=== PATIENT | female | born 1965 | race Two or more races ===

== ENCOUNTER → 2024-02-06 | Outpatient (CLI) | payer OTHER, SELFPAY ==
[2024-02-06 09:14] LABS: Basophils # (Auto) 0.1 Thou/mm3 (0.0-0.2); Basophils % (Auto) 1 % (0-2.5); Eosinophils # (Auto) 0.1 Thou/mm3 (0.0-0.5); Eosinophils % (Auto) 1 % (0-10); Hematocrit 39.7 % (36.0-46.0); Hemoglobin 12.7 g/dL (12.0-16.0); Immature Granulocytes % (Auto) 0 % (0-0); Immature Granulocytes Auto 0.02 Thou/mm3 (0.00-0.00); Lymphocytes # (Auto) 2.6 Thou/mm3 (1.0-4.8); Lymphocytes % (Auto) 40 % (10-50); Mean Corpuscular Volume 88 fL (80-100); Monocytes # (Auto) 0.4 Thou/mm3 (0.0-0.8); Monocytes % (Auto) 7 % (0-12); Neutrophils # (Auto) 3.2 Thou/mm3 (1.8-7.7); Neutrophils % (Auto) 50 % (37-80); Nucleated Red Blood Cell % 0 /100 WBC (0); Platelet Count 288 Thou/mm3 (140-440); RDW Standard Deviation 44.3 fL (36.4-46.3); Red Blood Count 4.53 Miln/mm3 (4.00-5.20); White Blood Count 6.4 Thou/mm3 (3.6-11.0)
[2024-02-06 09:20] LABS: Glucose Estimated Average 137 mg/dL (80-131); Hemoglobin A1C 6.4 % Hgb (4.8-6.0)
[2024-02-06 09:29] LABS: Alanine Aminotransferase 21 U/L (10-49); Albumin, Serum 4.5 gm/dL (3.4-4.8); Alkaline Phosphatase 56 U/L (46-116); Anion Gap 6 (7-16); Aspartate Amino Transferase 14 U/L (0-34); BUN/Creatinine Ratio 20 Ratio (12-20); Bilirubin,Direct 0.2 mg/dL (0.0-0.3); Bilirubin,Total 0.6 mg/dL (0.3-1.2); Blood Urea Nitrogen 14 mg/dL (9-23); Calcium 9.3 mg/dL (8.3-10.6); Calcium (Corrected) 9.3 mg/dL (8.5-10.1); Carbon Dioxide 27.5 mMol/L (20.0-31.0); Cardiac Risk Estimate 2.5 RATIO (3.7-5.6); Chloride 106 mMol/L (98-107); Cholesterol 195 mg/dL (132-200); Creatinine (Component) 0.7 mg/dL (0.6-1.3); Globulin 2.3 gm/dL (2.3-3.5); Glucose 140 mg/dL (74-106); HDL Cholesterol 78 mg/dL (40-60); LDL Cholesterol,Calculated 93 mg/dL (0-130); Osmolality,Calculated 280 (275-295); Potassium 4.2 mMol/L (3.4-5.1); Sodium 139 mMol/L (136-145); Thyroid Stimulating Hormone 1.68 uIU/mL (0.55-4.78); Total Protein 6.8 gm/dL (5.7-8.2); Triglycerides 120 mg/dL (30-150); eGFR > 60 See Note
[2024-02-06 09:31] LABS: Vitamin B12 1240 pg/mL (211-911); Vitamin D 25 Hydroxy Total 36.6 ng/mL (7.3-40.2)
== END | disposition home or self-care (01) ==
LOC: COPL 08:35
PROVIDERS: PCP Family Medicine; Referring Provider Student in an Organized Health Care Education/Training Program; Visit Provider Psychiatry & Neurology Neurology
DX: B35.9 Dermatophytosis, unspecified (principal); R41.3 Other amnesia; E11.49 Type 2 diabetes mellitus with other diabetic neurological complication; E78.5 Hyperlipidemia, unspecified
CPT/HCPCS: 36415; 80053; 80061; 82248; 82306; 82607; 83036; 84443; 85025

== ENCOUNTER 2024-09-07 21:23 | Emergency (ER) | payer OTHER, SELFPAY ==
[2024-09-07 21:25] VITALS: BMI 34.2
[2024-09-07 22:19] VITALS: BP 133/89; PULSE 74; RESP 16; TEMP 36.8; O2SAT 97
--- NOTE | 2024-09-07 23:39 | PD.EDRME ---
Rapid Medical Screening Exam RME Arrival date/time: 09/07/24 21:23 Chief Complaint: Eye Problems Time Seen by Provider: 09/07/24 22:44 Vital signs: Vital Signs Temperature 98.3 F 09/07/24 22:19 Pulse Rate 74 09/07/24 22:19 Respiratory Rate 16 09/07/24 22:19 Blood Pressure 133/89 H 09/07/24 22:19 Pulse Oximetry (%) 97 09/07/24 22:19 Oxygen Delivery Method Room Air 09/07/24 22:19 Vital signs reviewed by provider: Yes RME Narrative: 58-year-old female with a past medical history of diabetes and hyperlipidemia, presents to the ED with a complaint of sudden onset of a black ring in her vision of the left eye since this morning as well as a sudden onset of flashing lights in the upper, lower, and lateral field vision that began about 4 PM. Earlier today she had a PET scan of her brain due to memory issues. She denies any loss of vision other than seeing the black ring with a clear center. She denies any recent illness with fever, chills, upper respiratory complaints. She denies any previous history of flashers but has had some light floaters. She had a headache earlier today but attributes that to not having anything to eat prior to her PET scan. She is concerned about the possibility of a retinal detachment. I have greeted and performed a focused initial assessment of this patient. A comprehensive ED assessment and evaluation of the patient, analysis of all test results, and completion of the medical decision making process will be conducted by additional ED providers.
[2024-09-08 00:38] LABS: Basophils # (Auto) 0.0 Thou/mm3 (0.0-0.2); Basophils % (Auto) 1 % (0-2.5); Eosinophils # (Auto) 0.1 Thou/mm3 (0.0-0.5); Eosinophils % (Auto) 1 % (0-10); Hematocrit 40.2 % (36.0-46.0); Hemoglobin 13.1 g/dL (12.0-16.0); Immature Granulocytes Auto 0.03 Thou/mm3 (0.00-0.00); Lymphocytes # (Auto) 3.6 Thou/mm3 (1.0-4.8); Lymphocytes % (Auto) 45 % (10-50); Mean Corpuscular HGB Conc 32.6 g/dl (31.0-37.0); Mean Corpuscular Hemoglobin 28.5 pg (25.0-35.0); Mean Corpuscular Volume 87 fL (80-100); Monocytes # (Auto) 0.6 Thou/mm3 (0.0-0.8); Monocytes % (Auto) 7 % (0-12); Neutrophils # (Auto) 3.8 Thou/mm3 (1.8-7.7); Neutrophils % (Auto) 46 % (37-80); Nucleated Red Blood Cell # 0.00 Thou/mm3 (0.00-0.00); Nucleated Red Blood Cell % 0 /100 WBC (0); Platelet Count 296 Thou/mm3 (140-440); RDW Standard Deviation 43.3 fL (36.4-46.3); Red Blood Count 4.60 Miln/mm3 (4.00-5.20); White Blood Count 8.1 Thou/mm3 (3.6-11.0)
[2024-09-08] MEDS: FLUORESCEIN SOD 1 MG STRP BOTH EYES (00:40)
[2024-09-08] MEDS: PROPARACAINE OP SOL 0.5% 15 ML BTL BOTH EYES (00:40)
[2024-09-08 00:53] LABS: Sed Rate (ESR) 38 mm/hr (0-30)
[2024-09-08 00:59] LABS: Anion Gap 8 (7-16); BUN/Creatinine Ratio 25 Ratio (12-20); Blood Urea Nitrogen 20 mg/dL (9-23); C-Reactive Protein < 0.5 mg/dL (0.0-0.9); Calcium 9.6 mg/dL (8.3-10.6); Carbon Dioxide 28.2 mMol/L (20.0-31.0); Chloride 102 mMol/L (98-107); Creatinine (Component) 0.8 mg/dL (0.6-1.3); Estimated Creatinine Clearance 69.7 mL/min (>60); Glucose 134 mg/dL (74-106); Osmolality,Calculated 280 (275-295); Potassium 4.3 mMol/L (3.4-5.1); Sodium 138 mMol/L (136-145); eGFR > 60 See Note
[2024-09-08 01:09] VITALS: BP 120/80; PULSE 70; RESP 17; O2SAT 96
[2024-09-08 01:10] VITALS: BP 120/80; PULSE 71; RESP 18; TEMP 36.5; O2SAT 97
--- NOTE | 2024-09-08 01:18 | XR_ITS ---
Examination: CT brain head without contrast. 2-D sagittal coronal reconstructions Date and time of exam:September 08, 2024, 0158 hours INDICATIONS: Headaches for a follow via, dark spot in the left eye beginning today CTDI: vol (mGy):48.5 DLP: (mGycm):958 Technique: Multiple CT axial sections of the brain have been obtained, 5 mm slice thickness. Contrast has not been administered. 2-D sagittal, coronal reconstructions have been obtained Low dose protocols were performed. One or more of the following dose reduction techniques were used; automated exposure control, adjustment of the mA and/or KV according to patient size, use of iterative reconstruction technique. Findings: No significant ventricular enlargement. Intra-axial or extra-axial hemorrhage density is not seen. No mass effect or midline shift Basal cisterns are not remarkable. Fourth ventricle is midline. Cranial vault intact. Impression: Negative for acute hemorrhage, mass effect or midline shift
--- NOTE | 2024-09-08 01:26 | EDNOTE_ITS ---
ED Eye Problem RME/HPI General Chief complaint: Eye Problems Stated complaint: DARK SPOTS IN LEFT EYE Time Seen by Provider: 09/07/24 22:44 Arrival date/time: 09/07/24 21:23 Limitations: no limitations RME / HPI RME / HPI Narrative: Dr. Fox's Main ED Evaluation: 58yo female with a history of DM, HLD presents to the ED for a chief complaint of eye problems. Patient states she started seeing flashing lights to her left eye last night around 1900, reporting it resolved after a few minutes. She states she woke up and started seeing a black ring out of her left eye this morning, then saw the flashing lights again this afternoon. She denies any dizziness, weakness, or any other associated symptoms. She does wear glasses. She denies any previous eye surgeries. NKA. Related Data Home Medications ?Medication ?Instructions ?Recorded ?Confirmed metformin 500 mg tablet 500 mg PO BID 09/21/1709/21 rosuvastatin 5 mg tablet (Crestor) mg PO QDAY 09/21/17 sitagliptin phosphate 25 mg tablet mg PO QDAY 09/21/17 (Januvia) Previous Rx's ?Medication ?Instructions ?Recorded alprazolam 0.25 mg tablet (Xanax) 0.25 mg PO TID PRN a nxiety #7 tabs 09/21/17 Allergies Allergy/AdvReac Type Severity Reaction Status Date / Time No Known Allergies Allergy Verified 09/07/24 21:24 Review of Systems Review of Systems Systems Reviewed: All systems reviewed, normal except as documented Past Medical History Past Medical History CARDIAC: Positive Hypercholesterolemia; Negative Congestive Heart Failure RESPIRATORY: Negative Chronic Obstructive Pulmonary Disease (COPD) GENITOURINARY: Negative Renal Disease ENDOCRINE: Positive Diabetes Mellitus Type 2; Negative Diabetes Mellitus Type 1 PSYCHO/SOCIAL: Positive Depression Social History SMOKING STATUS: Never smoker ED Exam General Limitations: Present no limitations General appearance: Present alert and in no apparent distress Head Head exam: Present atraumatic; Absent other (temporal artery tenderness) Eye Eye exam: Present normal appearance, PERRL, EOMI and other (left cornea is clear, no photophobia, no uptake, no Bebo sign, no corneal abrasion, no foreign body; lids are normal without any lacerations, no proptosis) ENT ENT exam: Present normal exam, normal oropharynx, mucous membranes moist and other (no vesicles to the nose or face) Neck Neck exam: Present normal inspection, full ROM and trachea midline Chest Chest inspection: Present normal inspection and symmetric chest wall rise Respiratory Respiratory exam: Present normal lung sounds bilaterally Cardiovascular Cardiovascular exam: Present regular rate, normal rhythm and normal heart sounds Abdominal Exam Abdominal exam: Present soft and normal bowel sounds Extremities Exam Extremities exam: Present normal inspection and full ROM Back Exam Back exam: Present normal inspection and full ROM Neurological Exam Neurological exam: Present alert, oriented X3 and CN II-XII intact Psychiatric Psychiatric exam: Present normal affect and normal mood Skin Skin exam: Present warm, dry, intact and normal color Course Quality Measures none Orders Category Date Time Status [place] to Bedside X1 Care 09/08/24 00:[address] head/brain wo con Stat Exams 09/08/24 01:18 Completed BMP [Basic Metabolic Panel] Stat Lab 09/08/24 00:32 Completed CBC Stat Lab 09/08/24 00:32 Completed CRP [C-Reactive Protein] Stat Lab 09/08/24 00:32 Completed ESR [Sed Rate (ESR)] Stat Lab 09/08/24 00:32 Completed Fluorescein Sodium [Bio-Nell] Med 09/08/24 00:25 Discontinued 1 mg BOTH EYES X1 ONE Proparacaine Op Herminia 0.5% [Alcaine Op Herminia 0.5%] Med 09/08/24 00:25 Discontinued See Dose Instructions BOTH EYES X1 ONE Vital Signs Vital signs: Vital Signs Temperature 98.3 F 09/07/24 22:19 Pulse Rate 74 09/07/24 22:19 Respiratory Rate 16 09/07/24 22:19 Blood Pressure 133/89 H 09/07/24 22:19 Pulse Oximetry (%) 97 09/07/24 22:19 Oxygen Delivery Method Room Air 09/07/24 22:19 Eye MDM Narrative MDM Narrative:: Scribe Attestation: 09/08/24 Charmaine Hernández am scribing for and in the presence of Dr. Fox. 58-year-old female with history of diabetes presenting to the emergency department with intermittent flashing lights left eye currently not present With normal visual acuity. Bedside ultrasound shows vitreous hemorrhage cannot rule out retinal detachment. The patient does not have a history of trauma in the last 48 hours and at this time the need to arrange for outpatient follow. Patient's symptoms have resolved here in the emergency department. CT shows no stroke. Tocopen shows left eye pressure is 15. 0328: Discussed case with [facility]'s transfer center. Discussed patients ED course, exam findings, labs, and radiology results. Awaiting callback. 0352: [facility] called back, stating the patient can follow-up at the [facility] later today or tomorrow as an outpatient. Patient data External records reviewed:: [facility] previous records (Per chart review, patient has no relevant previous ED visits.) Clinical information provided by:: none Social determinants that could affect healthcare access:: none Patient has the following chronic illnesses:: DM, HLD How is presenting disease/condition affected by chronic disease/condition?: uneffected by Evaluation data The following diagnostics were reviewed and interpreted by me:: lab results and radiology exam(s) Lab and/or radiology exams considered but not ordered:: none Interpretation Summary: CBC normal, BMP normal, CRP normal. Telerad Preliminary Report Draft Patient: SYED REARDON. Record#: [id number] Birthdate: 1965 Age/Sex: 58 / F Location: [facility] Attending Dr: Ordering Physician: Date of Service: Procedure(s): Accession Number(s): cc: ~ CT scan of the head without intravenous contrast (axial sections with sagittal and coronal reformats) September 08, 2024 0158 hours Clinical History: 58 yo with left eye blinking lights No prior study is available for comparison. Findings: There is no evidence of intracranial hemorrhage, mass effect or midline shift. There is mild volume loss. The calvarium is unremarkable. The mastoid air cells and the visualized paranasal sinuses are clear. Impression: No evidence of intracranial hemorrhage, mass effect or midline shift. Report Electronically Signed By: Rao Iglesias 09/08/2024 2:28:31 AM Medications / Prescriptions Medications or Prescriptions considered but not ordered:: none Medication administrations:: Medication Administration History Discontinued Medications Fluorescein Sodium (Fluorescein Sod 1 Mg Strp) 1 mg BOTH EYES X1 ONE Stop: 09/08/24 00:26 Last Admin: 09/08/24 00:40 Dose: 1 mg Documented By: JENNIFER Comments: given to provider Proparacaine HCl (Proparacaine Op Herminia 0.5% 15 Ml Btl) 0 drop BOTH EYES X1 ONE Stop: 09/08/24 00:26 Last Admin: 09/08/24 00:40 Dose: 1 drop Documented By: JENNIFER Comments: given to provider see above Consultations Consultation(s) initiated? (list below): Yes Diagnosis Eye Problem Differential Diagnosis: other (vitreous hemorrhage, retinal detachment, stroke) Most likely diagnosis given after review of the tests above:: see clinical impression below Admission Indicated Admission indicated?: not indicated Admission Request Was there a request for admission?: No Disposition Plan Disposition Plan: Discharge Discharge Attestation Discharge Attestation: The patient and all family members were given an opportunity to ask questions and understood the discharge instructions. Discharge instructions specifically effects, indications for sooner follow up or return to the emergency department, and the expected course of current diagnosis. Patient condition: Stable Discharge Plan Plan Patient Disposition: HOME (Self Care) Prescriptions/Referrals Prescriptions/Med Rec: No Action metformin 500 mg Tablet 500 mg PO BID sitagliptin phosphate [Januvia] 25 mg Tablet PO QDAY rosuvastatin [Crestor] 5 mg Tablet PO QDAY alprazolam [Xanax] 0.25 mg tablet 0.25 mg PO TID PRN (Reason: anxiety) Qty: 7 0RF Problem List Clinical Impression: Vitreous hemorrhage Patient/Caregiver Discharge Instructions Additional Instructions: Call the [facility] at [phone] to make an appointment for later today or tomorrow. Address is [address] [place] [address], [id number], located on the 3rd floor. Print Language: Bhutanese Stand Alone Forms: [facility] Award Info., Patient Portal Info Letter
--- NOTE | 2024-09-08 02:29 | PRELIM_ITS ---
CT scan of the head without intravenous contrast (axial sections with sagittal and coronal reformats) September 08, 2024 0158 hours Clinical History: 58 yo with left eye blinking lights No prior study is available for comparison. Findings: There is no evidence of intracranial hemorrhage, mass effect or midline shift. There is mild volume loss. The calvarium is unremarkable. The mastoid air cells and the visualized paranasal sinuses are clear. Impression: No evidence of intracranial hemorrhage, mass effect or midline shift. Report Electronically Signed By: Rao Iglesias 09/08/2024 2:28:31 AM [EST]
--- NOTE | 2024-09-08 03:29 | PC.NURSE ---
[facility] contacted for an [facility] patient [facility]mology consult. [facility] speaking to Andres at the moment for emtala questions.
[2024-09-08 04:46] VITALS: BP 117/90; PULSE 70; RESP 17; TEMP 36.5; O2SAT 95
== END 2024-09-08 04:47 | disposition home or self-care (01) ==
LOC: SERX 09-08 04:04
PROVIDERS: Emergency Provider Emergency Medicine; PCP Family Medicine
DX: H43.12 Vitreous hemorrhage, left eye (principal); R51.9 Headache, unspecified
CPT/HCPCS: 36415; 70450; 80048; 85025; 85652; 86140; 99283

== ENCOUNTER → 2024-11-09 | Outpatient (CLI) | payer OTHER, SELFPAY ==
--- NOTE | 2024-11-09 14:15 | XR_ITS ---
Examination: Screening digital mammography, bilateral Computer aided detection 3-D breast Tomosynthesis, bilateral Date and time of exam: November 09, 2024, 1354 hours, compared to mammograms dating to April 28, 2017 Indication: Screening Technique: Nonmagnified MLO, CC views of the breasts to been obtained, reconstructed from 3-D Tomosynthesis images. R2 computer aided detection program utilized for evaluation of suspicious masses and/or abnormal calcifications. 3-D Tomosynthesis images obtained. Findings: The breasts are heterogeneously dense, which may obscure small masses The breast architecture remains nodular on the left Breast biopsy marker upper outer left breast Grouped microcalcifications upper from the breast biopsy marker upper outer left breast anterior depth Focal asymmetry retroareolar region left breast again noted Impression: BI-RADS Category 0: Incomplete: Need additional imaging evaluation Recommend follow-up magnification spot compression films of grouped microcalcifications upper outer left breast as well as bilateral breast sonography to complete the workup
== END | disposition home or self-care (01) ==
LOC: CDIM 13:43
PROVIDERS: Referring Provider Family Medicine; Visit Provider Family Medicine
DX: Z12.31 Encounter for screening mammogram for malignant neoplasm of breast (principal); R92.0 Mammographic microcalcification found on diagnostic imaging of breast
CPT/HCPCS: 77063; 77067

== ENCOUNTER → 2024-12-03 | Outpatient (CLI) | payer OTHER, SELFPAY ==
[2024-12-03 14:43] LABS: OBS Performed By LAB; OBS QC OK? Yes
[2024-12-03 15:49] LABS: Occult Blood, Stool Negative (Negative); Occult Blood, Stool #2 Negative (Negative); Occult Blood, Stool #3 Negative (Negative)
[2024-12-03 15:50] LABS: OBS Developer Expiration Date 2-28-27; OBS Developer Lot # 4-24-551749
== END | disposition home or self-care (01) ==
LOC: SLDO 14:38
PROVIDERS: PCP Family Medicine; Referring Provider Family Medicine; Visit Provider Family Medicine
DX: Z12.11 Encounter for screening for malignant neoplasm of colon (principal)
CPT/HCPCS: 82270

== ENCOUNTER → 2024-12-14 | Outpatient (CLI) | payer OTHER, SELFPAY ==
--- NOTE | 2024-12-14 08:45 | XR_ITS ---
Examination: Breast ultrasound complete, bilateral Date and time of exam: December 14, 2024, 10:22 a.m. INDICATIONS: Grouped microcalcifications upper outer left breast, focal asymmetry retroareolar region left breast on mammogram 11/09/2024 Technique: Real-time grayscale ultrasonographic imaging bilateral breasts, including all 4 quadrants as well as nipple retroareolar and axillary regions. Findings: Sonographic images right breast 9:00 cyst 11 x 9 mm No solid nodules Sonographic images left breast 2:00 nodule lobular margins 21 x 14 mm 3:00 cyst 6 x 7 mm IMPRESSION: BI-RADS Category 3: Probably benign findings Recommend 1 additional 6-month left breast sonogram follow-up to document stability of 2:00 nodule described above
--- NOTE | 2024-12-14 09:45 | XR_ITS ---
Examination: Diagnostic digital mammography, unilateral, left Computer aided detection 3-D breast Tomosynthesis, unilateral Date and time of exam: 12/14/2024, 10:13 a.m. Comparisons: June 2017, October 2024 Indications: Further evaluation of calcifications seen on prior screening exam Technique: Nonmagnified MLO, CC views of the left breast have been obtained, reconstructed from 3-D Tomosynthesis images. R2 computer aided detection program utilized for evaluation of suspicious masses and/or abnormal calcifications. 3-D Tomosynthesis images obtained. Technologist: Findings: There are scattered areas of fibroglandular density. Spot magnification views demonstrate suspicious grouped amorphous calcifications outer left breast best seen on the cc view. Otherwise no evidence of suspicious mass Impression: Suspicious grouped amorphous calcifications outer breast as above. Stereotactic biopsy is recommended. BI-RADS category 4: Suspicious abnormality, biopsy recommended
== END | disposition home or self-care (01) ==
LOC: CDIM 09:58
PROVIDERS: PCP Family Medicine; Referring Provider Family Medicine; Visit Provider Family Medicine
DX: R92.1 Mammographic calcification found on diagnostic imaging of breast (principal); N63.21 Unspecified lump in the left breast, upper outer quadrant
CPT/HCPCS: 76641; 77061; 77065; G0279